=== PATIENT | male | born 1980 | race Asian ===

== ENCOUNTER 2021-01-05 10:06 | Day surgery (SDC) | payer OTHER, SELFPAY ==
[~2021-01-05] VITALS: Ht 170.2 cm; Wt 77.6 kg
[2021-01-05] MEDS ORDERED: fentaNYL citrate 0.05 MG/ML VIAL ONE (12:15)
[2021-01-05] MEDS ORDERED: MIDAZOLAM 2 MG/2 ML VIAL ONE (12:15)
[2021-01-05] MEDS ORDERED: LIDOCAINE 2% 100 MG/5 ML UJET TP ONE ×2 (12:16→13:20)
[2021-01-05] MEDS ORDERED: fentaNYL citrate 0.05 MG/ML VIAL IVP ONE (13:40)
== END 2021-01-05 14:00 | disposition home or self-care (01) ==
LOC: MDS 10:06 → MMU 10:08 → MDS 14:00
PROVIDERS: ATTEND Internal Medicine Gastroenterology
DX: K62.5 Hemorrhage of anus and rectum (principal); K64.8 Other hemorrhoids; Z87.891 Personal history of nicotine dependence; Z79.899 Other long term (current) drug therapy; Z20.828 Contact with and (suspected) exposure to other viral communicable diseases
CPT/HCPCS: 45378; J3010; U0003; J2250

== ENCOUNTER 2021-05-25 09:01 | Emergency (ER) | payer OTHER, SELFPAY ==
[~2021-05-25] VITALS: Ht 170.2 cm; Wt 76.7 kg
[2021-05-25 09:06] VITALS: BP 140/89
--- NOTE | 2021-05-25 09:10 | NUR ---
BIB C/O 02/22 ANAL PAIN 4 DAYS. LAST BM 4 DAYS. DENIES BLOODY STOOL. PMH: HEMORRHOIDS BANDAGE 4 DAYS AGO.
[2021-05-25] MEDS ORDERED: DOCU-299 PO (09:35)
[2021-05-25] MEDS ORDERED: HYDR-2734 TP (09:35)
--- NOTE | 2021-05-25 09:39 | NUR ---
[facility] in [facility] - 05/25/21 at 0948 by [email or web address] NO NEED NURSING INTERVENTIONS, SEEN & TRETED BY DR MELENDEZ.
--- NOTE | 2021-05-25 09:50 | NUR ---
DR. IBARRA BEDSIDE EVALUATING PT
[2021-05-25] MEDS ORDERED: LIDOCAINE MPF 1% 10 MG/ML VIAL INJ ONE (09:55)
[2021-05-25] MEDS ORDERED: HYDROmorphone PFS 2 MG/ML SYR IVP ONE (10:00)
[2021-05-25] MEDS ORDERED: HYDROmorphone 1 MG/ML AMP ONE (10:00)
--- NOTE | 2021-05-25 10:00 | NUR ---
DR. IBARRA BEDSIDE PERFORMING DRAINAGE OF HEMORRHOID. PT TOLERATED PROCEDURE WELL
[2021-05-25] MEDS ORDERED: KETOROLAC 30 MG/ML VIAL IVP ONE (10:05)
[2021-05-25 10:27] VITALS: BP 140/89
--- NOTE | 2021-05-25 10:28 | NUR ---
Patient discharged with v/s stable. Written and verbal after care instructions given and explained. Patient alert, oriented and verbalized understanding of instructions. Ambulatory with steady gait. All questions addressed prior to discharge. ID band removed. Patient advised to follow up with PMD. Rx of COLACE AND HYDROCORTISONE given. Patient educated on indication of medication including possible reaction and side effects. Opportunity to ask questions provided and answered.
== END 2021-05-25 10:28 | disposition home or self-care (01) ==
LOC: MED 09:01
DX: K64.5 Perianal venous thrombosis (principal)
CPT/HCPCS: 96374; 99283; J1885; J2001; J1170

== ENCOUNTER 2021-05-30 17:18 | Observation (INO) | payer OTHER, SELFPAY ==
[~2021-05-30] VITALS: Ht 170.2 cm; Wt 75.7 kg
[~2021-05-30 17:18] MED LIST: DOCU-299 PO; HYDR-2734 TP; ONDANSETRON 4 MG/2 ML VIAL ONE; SEVOFLURANE 250 ML BTL INH ONE
[2021-05-30 17:43] VITALS: BP 137/91
--- NOTE | 2021-05-30 17:49 | NUR ---
PT TAKEN TO ER BED 2.
--- NOTE | 2021-05-30 18:11 | NUR ---
40 Y/O MALE C/O RECTAL PAIN 8/10 FROM EXTERNAL HEMORRHOID X 8 DAYS. PAIN 5/10. TRAMADOL LAST TAKEN AT 1PM. DENIES N/V, DENIES FEVER/CHILLS. PMH: PRE-DM, GOUT NKA
--- NOTE | 2021-05-30 18:34 | NUR ---
GRIZZLYMAN AT PT BEDSIDE.
[2021-05-30 19:11] LABS: BASOPHILS % (AUTO) 0.4 % (0.0-2.0); EOSINOPHILS # (AUTO) 0.2 K/uL (0-0.4); EOSINOPHILS % (AUTO) 1.9 % (0.0-4.0); HEMATOCRIT 40.2 % (36-52); HEMOGLOBIN 13.4 g/dL (12.0-18.0); LYMPHOCYTES # (AUTO) 2.2 K/uL (2.0-11.5); LYMPHOCYTES % (AUTO) 22.2 % (20.5-51.1); MEAN CORPUSCULAR HEMOGLOBIN 30 pg (27-31); MEAN CORPUSCULAR HGB CONC 33 g/dL (33-37); MEAN CORPUSCULAR VOLUME 91.3 fL (80-94); MONOCYTES # (AUTO) 0.7 K/uL (0.8-1.0); MONOCYTES % (AUTO) 7.3 % (1.7-9.3); NEUTROPHILS # (AUTO) 6.8 K/uL (1.8-7.7); NEUTROPHILS % (AUTO) 68.2 % (42.2-75.2); PLATELET COUNT (AUTO) 314 K/uL (140-450)
[2021-05-30 19:24] LABS: ANION GAP 12.9 (8-16); CARBON DIOXIDE 27.2 mmol/L (21-32); CREATININE 1.2 mg/dL (0.6-1.3); POTASSIUM 4.1 mmol/L (3.5-5.1)
--- NOTE | 2021-05-30 19:27 | NUR ---
COLLECTED JUNIOR ESPOSITO, WALKED TO LAB.
[2021-05-30] MEDS ORDERED: HYDROcodone/APAP 5/325 MG 1 TAB TAB PO ONE (19:30)
[2021-05-30] MEDS ORDERED: HYDROmorphone PFS 2 MG/ML SYR IVP PRN (19:30)
[2021-05-30] MEDS ORDERED: ONDANSETRON 4 MG/2 ML VIAL IVP ONE (19:30)
--- NOTE | 2021-05-30 19:32 | NUR ---
PT RESTING, HOB LOWERED, LIGHTS OFF PER PT REQUEST, VSS, WILL CONTINUE TO MONITOR.
[2021-05-30] MEDS: DEXT 5% / NACL 0.45% 1,000 ML IV SCH (19:55)
[2021-05-30] MEDS: NACL 0.9% 1,000 ML IV SCH (20:45)
[2021-05-30] MEDS ORDERED: POTASSIUM CHLORIDE 10 MEQ TABER PO PRN (20:45)
[2021-05-30] MEDS ORDERED: ONDANSETRON 4 MG/2 ML VIAL IVP PRN (20:45)
[2021-05-30] MEDS ORDERED: ACETAMINOPHEN 325 MG TAB PO PRN (20:45)
[2021-05-30] MEDS ORDERED: MAGNESIUM OXIDE 400 MG TAB PO PRN (20:45)
[2021-05-30] MEDS ORDERED: HYDROcodone/APAP 5/325 MG 1 TAB TAB PO PRN (20:45)
[2021-05-30] MEDS ORDERED: MORPHINE SULFATE 4 MG/ML SYR IVP PRN (20:45)
[2021-05-30] MEDS ORDERED: KCL 20 MEQ/WATER INJ PREMIX 200 ML IV PRN (20:45)
[2021-05-30] MEDS ORDERED: MAG SULF 2000 MG/WATER PREMIX 50 ML IV PRN (20:45)
--- NOTE | 2021-05-30 21:32 | NUR ---
ATTEMPED TO CALL JAMIA ROBERTS FOR PENDING ADMISSION, ASKED IF SHE COULD CALL BACK.
--- NOTE | 2021-05-30 21:53 | NUR ---
GAVE REPORT TO JAMIA ROBERTS. ETA 15MINUTES.
--- NOTE | 2021-05-30 22:09 | NUR ---
Patient will be admitted to care of DR. IBARRA. Admited to [facility] 106A. Will go to room 106A. Belongings list completed. Report to JAMIA ROBERTS.
[2021-05-30 22:30] VITALS: BP 131/88
--- NOTE | 2021-05-30 22:30 | NUR ---
RECEIVED PATIENT FROM ER. PATIENT A/A/OX4, NOT IN ANY DISTRESS AT THIS TIME. NO COMPLAIN OF PAIN. IVF INFUSING ORDERED. VSS, SATING 98% ON RA. ORIENTED THE PATIENT TO THE ROOM SETTING AND USE OF CALL LIGHT SYSTEM. REVIEWED AND DISCUSSED PLAN OF CARE OF THE PT WITH DOMINIC ROBERTS. CALL LIGHT WITHIN REACH. WILL CONTINUE POC AND MONITORING.
--- NOTE | 2021-05-30 23:00 | NUR ---
MADE AWARE THAT HE IS NPO PAST MIDNIGHT FOR SURGERY TOMORROW. VERBALIZED UNDERSTANDING.
[2021-05-31] MEDS: NACL 0.9% 1,000 ML IV SCH ×2 (00:03→09:15)
--- NOTE | 2021-05-31 01:00 | NUR ---
SLEEPING COMFORTABLY IN BED. RESPIRATION EVEN AND UNLABORED.
--- NOTE | 2021-05-31 03:00 | NUR ---
ON HIS LEFT SIDE, STILL SLEEPING COMFORTABLY.
[2021-05-31 04:00] VITALS: BP 125/81
[2021-05-31] MEDS: DEXT 5% / NACL 0.45% 1,000 ML IV SCH (06:24)
--- NOTE | 2021-05-31 07:15 | NUR ---
RECEIVED REPORT FRON NIGHT NURSE PATIENT IS AAOX4 ON ROOM AIR, NPO EXCEPT MEDS, SKIN INTACT, IV INTACT ON RIGHT WRIST WITH D51/2 NS AT 100MLS/HR, AMBULATORY NORCO GIVEN, CONSENT PREPARED FOR EXCISION OF THROMBOSED HEMORRHOID BY DR IBARRA. SAFETY MEASURES IN PLACE AND CALL LIGHT WITHIN REACH. WILL CONTINUE TO MONITOR
[2021-05-31 07:27] LABS: BASOPHILS % (AUTO) 0.6 % (0.0-2.0); EOSINOPHILS # (AUTO) 0.2 K/uL (0-0.4); EOSINOPHILS % (AUTO) 3.3 % (0.0-4.0); HEMATOCRIT 37.4 % (36-52); HEMOGLOBIN 12.5 g/dL (12.0-18.0); LYMPHOCYTES # (AUTO) 2.4 K/uL (2.0-11.5); MEAN CORPUSCULAR HEMOGLOBIN 30 pg (27-31); MEAN CORPUSCULAR HGB CONC 33 g/dL (33-37); MONOCYTES # (AUTO) 0.7 K/uL (0.8-1.0); MONOCYTES % (AUTO) 9.2 % (1.7-9.3); NEUTROPHILS % (AUTO) 53.9 % (42.2-75.2); PLATELET COUNT (AUTO) 276 K/uL (140-450); RED BLOOD CELL COUNT(AUTO) 4.11 MIL/uL (4.20-6.10); RED CELL DISTRIBUTION WIDTH 14.1 % (11.6-13.7); WHITE BLOOD COUNT (AUTO) 7.4 K/uL (4.8-10.8)
[2021-05-31 07:59] LABS: PROTHROMBIN TIME 10.1 secs (10.8-13.4)
[2021-05-31 08:00] VITALS: BP 126/81
--- NOTE | 2021-05-31 08:20 | NUR ---
PATIENT OUT IN HIS ROOM FOR SURGERY EXCISON OF THROMBOSED HEMORRHOIDS BY DR IBARRA.
[2021-05-31] MEDS ORDERED: fentaNYL citrate 0.05 MG/ML VIAL ONE (08:25)
[2021-05-31] MEDS ORDERED: MIDAZOLAM 2 MG/2 ML VIAL ONE (08:25)
[2021-05-31] MEDS ORDERED: SUCCINYLCHOLINE CHLORIDE 200 MG/10 ML VIAL IVP ONE (08:28)
[2021-05-31] MEDS ORDERED: ROCURONIUM 50 MG/5 ML VIAL IV ONE (08:28)
[2021-05-31] MEDS ORDERED: LIDOCAINE/EPI 1% 1:100000 20 ML VIAL INJ ONE (08:28)
[2021-05-31] MEDS ORDERED: BUPIVACAINE-MPF 0.25% 30 ML VIAL INJ ONE (08:28)
[2021-05-31] MEDS ORDERED: PROPOFOL 200 MG/20 ML VIAL IV ONE (08:28)
[2021-05-31 08:35] LABS: D-DIMER < 100 ng/ml (0-400)
[2021-05-31] MEDS ORDERED: HYDROcodone/APAP 5/325 MG 1 TAB TAB PO PRN (08:35)
--- NOTE | 2021-05-31 08:55 | NUR ---
PATIENT HAS BEEN SCREENED AND CATEGORIZED LOW NUTRITION RISK. PATIENT WILL BE SEEN WITHIN 7 DAYS OF ADMISSION. 06/06/[address]
[2021-05-31] MEDS ORDERED: DOCUSATE SODIUM 100 MG GELCAP PO SCH (09:00)
[2021-05-31] MEDS ORDERED: GELATIN SPONGE 100 1 SPG TP ONE (09:03)
[2021-05-31] MEDS ORDERED: DEXAMETHASONE 4 MG/ML VIAL ONE ×2 (09:12→09:13)
[2021-05-31] MEDS ORDERED: LIDOCAINE 2% 100 MG/5 ML SYR IVP ONE ×2 (09:12)
[2021-05-31] MEDS ORDERED: METOCLOPRAMIDE 10 MG/2 ML INJ VIAL ONE (09:13)
[2021-05-31] MEDS ORDERED: KETOROLAC 30 MG/ML VIAL ONE (09:14)
[2021-05-31] MEDS ORDERED: ONDANSETRON 4 MG/2 ML VIAL IVP PRN (09:15)
--- NOTE | 2021-05-31 10:15 | NUR ---
PATIENT BACK IN HIS ROOM PATIENT IS STABLE AND DENIES ANY PAIN AT THIS TIME.
[2021-05-31] MEDS ORDERED: ACET-5629 PO (14:28)
[2021-05-31] MEDS ORDERED: DOCU-299 PO (14:29)
--- NOTE | 2021-05-31 15:05 | NUR ---
DISCHARGED INSTRUCTIONS GIVEN TO PT AT THE BEDSIDE, ENCOURAGED TO CONTINUE MEDICATION AND TO FOLLOW UP WITH PCP AFTER DISCHARGED. LIMIT HEAVY LIFTING AND DRIVING WHEN TAKING NARCOTICS AND TO INCREASE FLUID INTAKE AND FIBER INTAKE. REMOVED ID BANDS AND IV INTACT AND COMPLETE NO BLEEDING. INSTRUCTED TO AVOID STRAINING, INSTRUCTED TO SEEK MEDICAL HELP INCASE OF EMERGENCIES. CHANGED PT CLOTHES AND TOOK ALL PT BELONGINGS, PATIENT ESCORTED TO FRONT LOBBY PT IS GOING HOME ACCOMPANIED BY . PT IS STABLE
== END 2021-05-31 15:05 | disposition home or self-care (01) ==
LOC: MED 17:18 → MTU 19:36
PROVIDERS: ADMIT Hospitalist; ATTEND Hospitalist
DX: K64.5 Perianal venous thrombosis (principal); E11.9 Type 2 diabetes mellitus without complications; Z20.822 Contact with and (suspected) exposure to COVID-19; Z98.890 Other specified postprocedural states
CPT/HCPCS: 36415; 46250; 80048; 83735; 83880; 85025; 85379; 85610; 86886; 86900; 86901; 87081; 87426; 88304; 96360; 96361; 99284; G0378; J0330; J1100; J1885; J2001; J2250; J2405; J2704; J2765; J3010; J3490; J7120